=== PATIENT | female | born 1960 | race Caucasian/White ===

== ENCOUNTER 2020-04-08 08:03 | Outpatient (CLI) | payer MEDICAID, SELFPAY ==
--- NOTE | 2020-04-08 08:11 | MR_ITS ---
WS: [id number] MRI LUMBAR SPINE NONCONTRAST TECHNIQUE: Sagittal T1, T2 and STIR imaging. Axial T1 and T2 imaging. CLINICAL INFORMATION: INTERVERTEBRAL DIS DEGENERATION, LUMBAR REGION COMPARISON: None. FINDINGS: Mild lumbar curve. No acute compression. No high-grade central canal stenosis. Disc bulging worse L5- S1. L1-L2: Normal. L2-L3: Mild facet arthropathy. No significant disc bulging. Spinal canal and foramen are patent. L3-L4: Mild disc bulging with mild central canal stenosis. Impingement traversing L4 nerve roots. Sm all left foraminal protrusion with mild left foraminal narrowing. Right foramen is patent. Mild facet arthropathy. L4-L5: Mild disc bulging with impingement traversing right L5 nerve root. Mild right foraminal narrow ing. Left foramen is patent. Moderate facet arthropathy. Mild central canal stenosis. L5-S1: Central and left pericentral disc protrusion impinges the traversing left S1 nerve root. Recom mend correlation for left S1 nerve root symptoms. Foramen are patent. Moderate facet arthropathy. Mil d left L5-S1 foraminal narrowing. Visualized pelvic bony structures: Normal. Paravertebral soft tissues: Normal. MR/MR lumbar spine wo con* [id number] IMPRESSION: 1. Mild lumbar curve. No acute compression. No high-grade central canal stenos is. 2. Mild disc bulging L3-4 with impingement traversing L4 nerve roots. Mild moises tral canal stenosis. Mild left foraminal narrowing with a small left foraminal protrusion. 3. Mild central canal stenosis L4-5 impinges the traversing right L5 nerve flip t in the right subarticular recess. 4. Shallow central and left subarticular disc protrusion L5-S1 impinges the tr aversing left S1 nerve root. Mild left L5-S1 foraminal narrowing.
== END 2020-04-08 08:04 | disposition home or self-care (01) ==
LOC: RADWPI 08:10
PROVIDERS: Family Provider Family Medicine; PCP Family Medicine; Visit Provider Family Medicine
DX: M51.36 Other intervertebral disc degeneration, lumbar region (principal); R15.9 Full incontinence of feces; M51.26 Other intervertebral disc displacement, lumbar region; M48.061 Spinal stenosis, lumbar region without neurogenic claudication; M51.27 Other intervertebral disc displacement, lumbosacral region
CPT/HCPCS: 72148

== ENCOUNTER → 2020-07-04 12:50 | Outpatient (BNVA) | payer MEDICAID, SELFPAY | PROVIDERS: PCP Family Medicine; Visit Provider Surgery | DX: Z20.828 Contact with and (suspected) exposure to other viral communicable diseases (principal); Z01.812 Encounter for preprocedural laboratory examination | CPT/HCPCS: 87635 ==

== ENCOUNTER 2020-07-09 08:26 | Day surgery (SDC) | payer MEDICAID, SELFPAY ==
[2020-07-07 10:15] VITALS: BMI 28.6
[2020-07-09 09:04] VITALS: BP 118/67; PULSE 54; RESP 18; TEMP 36.6; O2SAT 99
[2020-07-09] MEDS: sodium chloride 0.9% 1,000 ML 30 ML IV (09:15)
--- NOTE | 2020-07-09 10:12 | W.PM.OPSUD ---
Surgery/Procedure H&P Update DATE OF PROCEDURE: July 09, 2020 DATE H&P PERFORMED: 06/26/20 H&P UPDATE INFORMATION: I have reviewed H&P completed within last 30 days, I have examined patient prior to procedure and No changes to prior documentation PREOP DIAGNOSIS: Occult blood in Stool PRIMARY INDICATION FOR PROCEDURE: The same PLANNED PROCEDURE: Operation Date: 07/09/20 10:00 Proposed Procedures p Colonoscopy 44045 r19.5(Not Applicable) - Cruzito Barnett MD
[2020-07-09 11:02] VITALS: BP 97/58; PULSE 69; RESP 16; TEMP 36.1; O2SAT 100
[2020-07-09 11:12] VITALS: BP 104/65; PULSE 65; RESP 18; O2SAT 97
--- NOTE | 2020-07-09 13:53 | ANES.PREANE2 ---
Pre-Anesthetic Assessment Pre-Anesthetic Assessment: Height/Weight: Height 1.63 m Weight 75.75 kg Temp Pulse Resp BP Pulse Ox 97 F L 65 18 104/65 97 07/09/20 11:02 07/09/20 11:12 07/09/20 11:12 07/09/20 11:12 07/09/20 11:12 Preop Diagnosis: Occult blood in Stool Proposed Procedure: Operation Date: 07/09/20 10:00 Proposed Procedures p Colonoscopy 24097 r19.5(Not Applicable) - Cruzito Barnett MD Was Beta Pamela taken within 24 hours: N/A Last intake: Intake Last Liquid Date 07/08/20 Last Liquid Time 18:30 Last Solid Date 07/07/20 Last Solid Time 19:00 Social: Social History: No alcohol and No tobacco Exam: Pre-Anes Outpt Exam: alert, oriented x 3, clear to auscultation bilaterally and regular rate & rhythm Airway: Submandibular: WNL Cervical ROM: WNL Dentition: Full Pulmonary: Pulmonary: None reported CV/HEM: CV/HEM: None reported : : None reported Hepatic: Hepatic: None reported GI: GI: None reported Metabolic: Metabolic: Thyroid Musc/skel: Musc/skel: Lower Back Pain Comments: chronic pain/opioid Neuropsych: Neuropsych: Anxiety and Depression Anesthetic Plan: ASA status: 3 Anesthesia: MAC Risk of > 500 ml blood loss (7ml/kg in children): No PFSH Anesthesia PFSH: Family History Mother CAD (coronary artery disease) Father Diabetes Sister Cancer ovarian Denies family history of Anesthesia complication Bleeding disorder Social History Smoking and tobacco status: former smoker Alcohol intake: current Alcohol intake frequency: holidays/special occasions only Alcohol type: wine Lives independently: Yes Household members: children Marital status: Single Current occupational status: disabled History of recent travel: No Data Anesthesia Cardiac Studies: No Data to Display
--- NOTE | 2020-07-09 13:56 | ANE.PACU2 ---
Inpatient post-anesthesia follow up: Airway intact: Yes Vital signs: Temperature 97 F Pulse Rate 65 Respiratory Rate 18 Blood Pressure 104/65 Pulse Oximetry 97 Oxygen Delivery Me thod Room Air Oxygen Flow Rate 4 Fraction of Inspir ed Oxygen Hydration adequate: Yes Nausea and vomiting: No Pain level: 1 Mental status: Baseline
== END 2020-07-09 11:30 | disposition home or self-care (01) ==
PROVIDERS: PCP Family Medicine; Visit Provider Surgery
PROC: 0DJD8ZZ Inspection of Lower Intestinal Tract, Via Natural or Artificial Opening Endoscopic (ICD-10-PCS; CPT 45378; principal; 2020-07-09 10:00)
DX: R19.5 Other fecal abnormalities (principal); K57.30 Diverticulosis of large intestine without perforation or abscess without bleeding; F41.9 Anxiety disorder, unspecified; F32.9 Major depressive disorder, single episode, unspecified; Z82.49 Family history of ischemic heart disease and other diseases of the circulatory system; Z87.891 Personal history of nicotine dependence
CPT/HCPCS: 12345; 45378; J2704; J3490; J7030

== ENCOUNTER 2022-05-20 12:13 | Outpatient (CLI) | payer BC, MEDICAID, SELFPAY ==
--- NOTE | 2022-05-20 13:07 | XR_ITS ---
WS: [id number] Lumbar spine with flexion, extension, and neutral lateral, 05/20/2022 Clinical Data: VERTEBROGENIC LOW BACK PAIN Comparison: None. Findings: No compression fractures or subluxation is seen. There is degenerative disc narrowing at L4-L5 and L5 -S1. There is minimal osteoarthritic spurring at L2-L5.. No limitation of motion or subluxation is seen. There are clips in the upper abdomen from a cholecystectomy. XR/XR lumbar spine f/e only [id number] Impression: 1. Degenerative disc narrowing at L4-L5 and L5-S1. 2. Osteoarthritic spurring L2-L5. 3. Negative for limitation of motion or subluxation on flexion or extension.
--- NOTE | 2022-05-20 13:08 | XR_ITS ---
WS: [id number] Thoracic spine, 3 views, 05/20/2022 Clinical Data: PAIN IN THORACIC SPINE Comparison: None. Findings: No compression fractures are seen. The disc heights are normal. There is minimal mid thoracic vertebral body spurring. The paravertebral regions are normal. There ar e midline sternotomy sutures. There are right upper quadrant clips from a cholecystectomy. XR/XR thoracic spine 3V* [id number] Impression: Minimal midthoracic vertebral body osteoarthritis.
== END 2022-05-20 12:14 | disposition home or self-care (01) ==
LOC: RAD 12:16
PROVIDERS: PCP Family Medicine; Visit Provider Family Medicine
DX: M54.51 Vertebrogenic low back pain (principal); M47.814 Spondylosis without myelopathy or radiculopathy, thoracic region
CPT/HCPCS: 72072; 72120

== ENCOUNTER 2023-09-08 12:39 | Outpatient (CLI) | payer BC, MEDICAID, SELFPAY ==
--- NOTE | 2023-09-08 12:49 | MR_ITS ---
WS: [id number] MRI THORACIC SPINE WITHOUT CONTRAST TECHNIQUE: Sagittal T1, T2 and STIR imaging. Axial T2 imaging. Noncontrast imaging obtained. CLINICAL INFORMATION: PAIN IN THORACIC SPINE COMPARISON: None. FINDINGS: Mild thoracic curve. Mild thoracic kyphosis. No acute compression. No high-grade central canal stenos is. No significant disc protrusions or extrusions. A few Schmorl's nodes in the lower thoracic spine. Moderate facet arthropathy lower thoracic spine. Mild annular bulging L1-2. Small to moderate esophageal hiatal hernia. Cardiomegaly. Sternotomy. IMPRESSION: 1. Mild thoracic kyphosis. No acute compression fractures. No high-grade central canal stenosis. 2. Cord signal is normal. 3. Moderate facet arthropathy lower thoracic spine. 4. Small to moderate esophageal hiatal hernia
== END 2023-09-08 12:40 | disposition home or self-care (01) ==
LOC: RAD 12:40
PROVIDERS: PCP Family Medicine; Visit Provider Anesthesiology Pain Medicine
DX: M47.814 Spondylosis without myelopathy or radiculopathy, thoracic region (principal); M40.204 Unspecified kyphosis, thoracic region; K44.9 Diaphragmatic hernia without obstruction or gangrene
CPT/HCPCS: 72146

== ENCOUNTER 2024-01-09 11:43 | Outpatient (CLI) | payer BC, MEDICAID, SELFPAY ==
--- NOTE | 2024-01-09 11:53 | MM_ITS ---
WS: [id number] BILATERAL 3D TOMOSYNTHESIS DIGITAL SCREENING MAMMOGRAPHY WITH CAD CLINICAL INFORMATION: SCREENING HISTORY: Screening mammogram. No current complaints. COMPARISON: New baseline TECHNIQUE: Bilateral CC and MLO views. FINDINGS: The breasts are composed of heterogeneous fibroglandular density tissue, which can limit the detectio n of small underlying mass lesions. No suspicious mass, asymmetry, calcifications, or architectural d istortion. No evidence of malignancy. A few incidental punctate calcifications. MM/[place] [id number] IMPRESSION: BI-RADS: 2-Benign FOLLOW UP: 1 Year Follow-up Recommend return to annual screening mammography.
== END 2024-01-09 11:44 | disposition home or self-care (01) ==
LOC: RAD 11:44
PROVIDERS: PCP Family Medicine; Visit Provider Family Medicine
DX: Z12.31 Encounter for screening mammogram for malignant neoplasm of breast (principal)
CPT/HCPCS: 77063; 77067